=== PATIENT | female | born 1980 | race Caucasian/White ===

== ENCOUNTER 2019-09-01 23:01 | Inpatient (IN) | payer BC, OTHER ==
[2019-09-02] MEDS ORDERED: Sodium Chloride 0.9% 10 ML Syringe FLUSH PRN (00:16)
[2019-09-02] MEDS ORDERED: Sodium Chloride 0.9% 2.5 ML Syringe FLUSH PRN (00:16)
[2019-09-02] MEDS ORDERED: Sodium Chloride 0.9% 1,000 ML IV ONE (01:00)
[2019-09-02 01:06] LABS: BLOOD UREA NITROGEN,BUN 9 mg/dL (7.0-18.0); CARBON DIOXIDE,CO2 23.8 mmol/L (21.0-32.0); CHLORIDE,CL 99 mmol/L (98-107); GLUCOSE RANDOM 106 mg/dL (74-106); LIPASE 33 U/L (73-393); POTASSIUM,K 3.7 mmol/L (3.5-5.1); SODIUM,NA 135 mmol/L (136-145)
[2019-09-02] MEDS ORDERED: cefTRIAXone 1 GM in Premix Bag 1 BAG IV ONE (01:33)
[2019-09-02] MEDS ORDERED: Iopamidol 755 Mg/ML 100 ML Bottle IVPUSH STA (02:02)
[2019-09-02] MEDS ORDERED: Acetaminophen/oxyCODONE 325-5 MG Tab PO ONE (02:18)
--- NOTE | 2019-09-02 02:36 | CT ---
Indication: Left flank pain, suspected pyelonephritis versus renal stone Technique: Contrast enhanced axial CT imaging through the abdomen and pelvis. 100 mL Isovue 370 contrast agent was administered intravenously. Sagittal and coronal reconstructions are provided. Comparison: None Findings: There is a 2 mm stone in the distal left ureter, residing approximately 2 cm from the ureterovesical junction. There is mild left hydronephrosis and perinephric edema. There is also slightly delayed left renal enhancement. No additional renal stones are seen. The right kidney is unremarkable. There is no significant abnormality of the liver, spleen, pancreas, and adrenal glands. Cholecystectomy clips are noted. The IVC, hepatic veins, and portal veins are patent. There is normal caliber of the abdominal aorta. There is no abdominal lymphadenopathy. The stomach and duodenum are unremarkable. There are no abnormally dilated small bowel loops. The appendix is noninflamed. There is no colonic wall thickening. No inflammatory changes are demonstrated in the mesentery. There is no free intraperitoneal fluid or air. Note is made of a 3 cm left adnexal cystic lesion. The urinary bladder, uterus, and right ovary are unremarkable. The osseous structures are unremarkable. The included lung bases are clear. Impression: A 2 mm stone in the distal left ureter. Mild left hydronephrosis, perinephric edema, and slightly delayed left renal enhancement are consistent with urinary obstruction. No additional renal or ureteral stones. Please note that all CT scans at this facility use dose modulation, iterative reconstruction, and/or weight-based dosing when appropriate to reduce radiation dose to as low as reasonably achievable. Dictated by Shimon Gómez MD @ Sep 02 2019 2:26AM Signed by Dr. Shimon Gómez @ Sep 02 2019 2:35AM
--- NOTE | 2019-09-02 02:49 | EDM.PDOC ---
ED HPI GENERAL MEDICAL PROBLEM - General Chief Complaint: Abdominal Pain Stated Complaint: LOWER BACK/ABFOMEN PAIN Time Seen by Provider: 09/01/19 23:08 Source of Information: Reports: Patient History Limitations: Reports: No Limitations - History of Present Illness INITIAL COMMENTS - FREE TEXT/NARRATIVE: 39-year-old female with no past medical history presenting with left flank pain and left upper quadrant abdominal pain. She reports a 2-day history of left flank pain radiating into the left upper quadrant. This is been associated with urinary frequency and difficulty voiding. She reports chills, nausea, but no emesis. Began developing right-sided flank pain as well several hours prior to arrival. She is concerned that she may have a kidney infection, which prompted her to come to the ER. She denies any history of diabetes or immunosuppression. No hematuria, fever, vomiting, vaginal bleeding or discharge, history of trauma to the flank or abdomen, diarrhea, or GI bleeding. No prior history of kidney stones. flanks bilaterally Pain Score (Numeric/FACES): 6 - Related Data Allergies Allergy/AdvReac Type Severity Reaction Status Date / Time No Known Allergies Allergy Verified 09/01/19 23:36 Home Meds: Home Meds Ibuprofen 800 mg PO ASDIRECTED PRN 09/01/19 [History] Past Medical History - Infectious Disease History Infectious Disease History: Reports: Chicken Pox - Past Surgical History GI Surgical History: Reports: Cholecystectomy Female Surgical History: Reports: Tubal Ligation Social & Family History - Family History Family Medical History: Noncontributory - Tobacco Use Smoking Status *Q: Current Every Day Smoker Years of Tobacco use: 23 Packs/Tins Daily: 1 - Caffeine Use Caffeine Use: Reports: None - Recreational Drug Use Recreational Drug Use: No ED ROS GENERAL - Review of Systems Review Of Systems: See Below Constitutional: Reports: Chills, Malaise. Denies: Fever HEENT: Reports: No Symptoms Respiratory: Denies: Shortness of Breath Cardiovascular: Denies: Chest Pain Endocrine: Reports: No Symptoms GI/Abdominal: Reports: Abdominal Pain, Nausea. Denies: Black Stool, Bloody Stool, Diarrhea, Hematemesis, Hematochezia, Vomiting : Reports: Flank Pain, Frequency, Urgency. Denies: Dysuria, Hematuria, Pain Musculoskeletal: Denies: Back Pain Skin: Denies: Rash, Lesions Neurological: Denies: Headache Psychiatric: Reports: No Symptoms Hematologic/Lymphatic: Reports: No Symptoms ED EXAM, RENAL/ - Physical Exam Exam: See Below Text/Narrative:: Vital signs reviewed. Nursing notes reviewed. Constitutional: Awake, alert, non-distressed. Head: Normocephalic, atraumatic. Eyes: EOMI, conjunctiva normal, no discharge, no scleral icterus. Ears, Nose, Throat: External ears and nose normal, moist oral mucosa. Cardiovascular: 2+ radial pulse, capillary refill less than 2 seconds. RRR no MRG Pulmonary: normal work of breathing, no accessory muscle use. CTA BL Abdomen/GI: Soft, mild tenderness to left upper quadrant, nondistended, no guarding or rigidity, no masses. Musculoskeletal: No deformities. Integumentary: Appropriate color for ethnicity, warm, dry, no pallor or jaundice, no rash. Neurologic: Alert, answering questions appropriately, normal speech, no facial droop, moving all extremities well. Psychiatric: Appropriate mood and affect, normal thought process. Course - Vital Signs Text/Narrative:: Labs show a leukocytosis with neutrophilic predominance, otherwise fairly unremarkable. Urinalysis appears infected so urine culture was added on. Blood cultures were drawn x2. Patient was then given IV ceftriaxone and some Percocet for pain along with 1 L of normal saline. Lactate is normal. Does not meet criteria for severe sepsis or septic shock. We obtained a CT scan of the abdomen and pelvis which demonstrated f a 2 mm left ureteral stone. Given pyelonephritis with concomitant kidney stone, I did consult our on-call urologist Dr. Bustillo who plans for likely ureteral stent placement in the morning and wants the patient to be n.p.o. for now. Will plan to admit to the hospitalist service, I talked to Dr. All Morejon who agrees to admit. Last Recorded V/S: Last Vital Signs Temp 36.2 C 09/02/19 02:34 Pulse 90 09/02/19 02:34 Resp 18 09/02/19 02:34 BP 132/59 L 09/02/19 02:34 Pulse Ox 98 09/02/19 02:34 - Orders/Labs/Meds Orders: Active Orders 24 hr Category Date Time Status Overnight Pulse Oximetry [RC] Click to Edit Care 09/02/19 00:16 Active NPO [Nothing Per Oral Diet] [DIET] Diet 09/01/19 Breakfast Active CULTURE BLOOD [BC] Stat Lab 09/02/19 00:30 Received CULTURE BLOOD [BC] Stat Lab 09/02/19 00:58 Received CULTURE URINE [RM] Stat Lab 09/02/19 00:00 Received Sodium Chloride 0.9% [Saline Flush] Med 09/02/19 00:16 Active 10 ml FLUSH ASDIRECTED PRN Sodium Chloride 0.9% [Saline Flush] Med 09/02/19 00:16 Active 2.5 ml FLUSH ASDIRECTED PRN Blood Culture x2 Reflex Set [OM.PC] Stat Oth 09/02/19 00:16 Ordered Pulse Oximetry Continuous Monitoring [OM.PC] Routine Oth 09/02/19 00:16 Ordered Saline Lock Insert [OM.PC] Stat Ot 09/02/19 00:16 Ordered Medication Orders Sodium Chloride (Saline Flush) 10 ml FLUSH ASDIRECTED PRN PRN Reason: Keep Vein Open Sodium Chloride (Saline Flush) 2.5 ml FLUSH ASDIRECTED PRN PRN Reason: Keep Vein Open Labs: Laboratory Tests 09/01/19 09/01/19 09/02/19 Range/Units 23:45 23:45 00:30 WBC 19.68 H (4.0-11.0) K/uL RBC 4.85 (4.30-5.90) M/uL Hgb 14.6 (12.0-16.0) g/dL Hct 42.9 (36.0-46.0) % MCV 88.5 (80.0-98.0) fL MCH 30.1 (27.0-32.0) pg MCHC 34.0 (31.0-37.0) g/dL RDW Std Deviation 40.9 (28.0-62.0) fl RDW Coeff of Javy 13 (11.0-15.0) % Plt Count 274 (150-400) K/uL MPV 9.00 (7.40-12.00) fL Neut % (Auto) 88.1 H (48.0-80.0) % Lymph % (Auto) 4.6 L (16.0-40.0) % Mcintosh % (Auto) 7.0 (0.0-15.0) % Eos % (Auto) 0.1 (0.0-7.0) % Baso % (Auto) 0.2 (0.0-1.5) % Neut # (Auto) 17.4 H (1.4-5.7) K/uL Lymph # (Auto) 0.9 (0.6-2.4) K/uL Mc[place]osh # (Auto) 1.4 H (0.0-0.8) K/uL Eos # (Auto) 0.0 (0.0-0.7) K/uL Baso # (Auto) 0.0 (0.0-0.1) K/uL INR Lactate (0.20-2.00) mmol/L Sodium (136-145) mmol/L Potassium (3.5-5.1) mmol/L Chloride (98-107) mmol/L Carbon Dioxide (21.0-32.0) mmol/L BUN (7.0-18.0) mg/dL Creatinine (0.6-1.0) mg/dL Est Cr Clr Drug Dosing mL/min Estimated GFR (MDRD) ml/min Glucose (74-106) mg/dL Calcium (8.5-10.1) mg/dL Total Bilirubin (0.2-1.0) mg/dL AST (15-37) IU/L ALT (14-63) IU/L Alkaline Phosphatase (46-116) U/L Troponin I (0.000-0.056) ng/mL Total Protein (6.4-8.2) g/dL Albumin (3.4-5.0) g/dL Globulin (2.6-4.0) g/dL Albumin/Globulin Ratio (0.9-1.6) Lipase (73-393) U/L Urine Color YELLOW Urine Appearance CLOUDY Urine pH 6.0 (5.0-8.0) Ur Specific Bear <= 1.005 (1.001-1.035) Urine Protein NEGATIVE (NEGATIVE) mg/dL Urine Glucose (UA) NEGATIVE (NEGATIVE) mg/dL Urine Ketones NEGATIVE (NEGATIVE) mg/dL Urine Occult Blood MODERATE H (NEGATIVE) Urine Nitrite NEGATIVE (NEGATIVE) Urine Bilirubin NEGATIVE (NEGATIVE) Urine Urobilinogen 0.2 (<2.0) EU/dL Ur Leukocyte Esterase LARGE H (NEGATIVE) Urine RBC 2-5 (0-2/HPF) Urine WBC 30-40 (0-5/HPF) Ur Epithelial Cells FEW (NONE-FEW) Urine Bacteria 1+ H (NEGATIVE) Urine HCG, Qual NEGATIVE (NEGATIVE) 09/02/19 09/02/19 09/02/19 Range/Units 00:30 00:30 00:30 WBC (4.0-11.0) K/uL RBC (4.30-5.90) M/uL Hgb (12.0-16.0) g/dL Hct (36.0-46.0) % MCV (80.0-98.0) fL MCH (27.0-32.0) pg MCHC (31.0-37.0) g/dL RDW Std Deviation (28.0-62.0) fl RDW Coeff of Javy (11.0-15.0) % Plt Count (150-400) K/uL MPV (7.40-12.00) fL Neut % (Auto) (48.0-80.0) % Lymph % (Auto) (16.0-40.0) % Mcintosh % (Auto) (0.0-15.0) % Eos % (Auto) (0.0-7.0) % Baso % (Auto) (0.0-1.5) % Neut # (Auto) (1.4-5.7) K/uL Lymph # (Auto) (0.6-2.4) K/uL Mcintosh # (Auto) (0.0-0.8) K/uL Eos # (Auto) (0.0-0.7) K/uL Baso # (Auto) (0.0-0.1) K/uL INR 1.02 Lactate 1.0 (0.20-2.00) mmol/L Sodium 135 L (136-145) mmol/L Potassium 3.7 (3.5-5.1) mmol/L Chloride 99 (98-107) mmol/L Carbon Dioxide 23.8 (21.0-32.0) mmol/L BUN 9 (7.0-18.0) mg/dL Creatinine 1.2 H (0.6-1.0) mg/dL Est Cr Clr Drug Dosing 50.27 mL/min Estimated GFR (MDRD) 50.3 ml/min Glucose 106 (74-106) mg/dL Calcium 8.4 L (8.5-10.1) mg/dL Total Bilirubin 0.8 (0.2-1.0) mg/dL AST 23 (15-37) IU/L ALT 27 (14-63) IU/L Alkaline Phosphatase 95 (46-116) U/L Troponin I < 0.050 (0.000-0.056) ng/mL Total Protein 7.0 (6.4-8.2) g/dL Albumin 3.6 (3.4-5.0) g/dL Globulin 3.4 (2.6-4.0) g/dL Albumin/Globulin Ratio 1.1 (0.9-1.6) Lipase 33 L (73-393) U/L Urine Color Urine Appearance Urine pH (5.0-8.0) Ur Specific Bear (1.001-1.035) Urine Protein (NEGATIVE) mg/dL Urine Glucose (UA) (NEGATIVE) mg/dL Urine Ketones (NEGATIVE) mg/dL Urine Occult Blood (NEGATIVE) Urine Nitrite (NEGATIVE) Urine Bilirubin (NEGATIVE) Urine Urobilinogen (<2.0) EU/dL Ur Leukocyte Esterase (NEGATIVE) Urine RBC (0-2/HPF) Urine WBC (0-5/HPF) Ur Epithelial Cells (NONE-FEW) Urine Bacteria (NEGATIVE) Urine HCG, Qual (NEGATIVE) Meds: Medications Generic Name Dose Route Start Last Admin Trade Name Cheri PRN Reason Stop Dose Admin Sodium Chloride 10 ml 09/02/19 00:16 Saline Flush FLUSH ASDIRECTED PRN Keep Vein Open Sodium Chloride 2.5 ml 09/02/19 00:16 Saline Flush FLUSH ASDIRECTED PRN Keep Vein Open Discontinued Medications Generic Name Dose Route Start Last Admin Trade Name Cheri PRN Reason Stop Dose Admin Sodium Chloride 1,000 mls @ 1,000 mls/hr 09/02/19 01:00 09/02/19 01:07 Normal Saline IV 09/02/19 01:59 1,000 mls/hr .Bolus ONE Administration Ceftriaxone Sodium/Dextrose 1 50 mls @ 100 mls/hr 09/02/19 01:33 09/02/19 02:11 gm/ Premix IV 09/02/19 02:02 100 mls/hr ONETIME ONE Administration Iopamidol 100 ml 09/02/19 02:02 09/02/19 02:03 Isovue-370 (76%) IVPUSH 09/02/19 02:03 100 ml ONETIME STA Administration Oxycodone/Acetaminophen 2 tab 09/02/19 02:18 09/02/19 02:39 Percocet 325-5 Mg PO 09/02/19 02:19 2 tab ONETIME ONE Administration Departure - Departure Time of Disposition: 02:53 Disposition: Admitted As Inpatient 67 Condition: Good Clinical Impression: Pyelonephritis - Discharge Information Sepsis Event Note (ED) - Evaluation Sepsis Screening Result: No Definite Risk - Focused Exam Vital Signs: Vital Signs Temp Pulse Resp BP Pulse Ox 09/02/19 02:34 36.2 C 90 18 132/59 L 98 09/02/19 01:15 95 18 114/58 L 98 09/01/19 23:36 36.3 C 97 18 160/62 H 95 - My Orders Last 24 Hours: My Active Orders 09/01/19 Breakfast NPO [Nothing Per Oral Diet] [DIET] 09/02/19 00:00 CULTURE URINE [RM] Stat 09/02/19 00:16 Overnight Pulse Oximetry [RC] Click to Edit Sodium Chloride 0.9% [Saline Flush] 10 ml FLUSH ASDIRECTED PRN Sodium Chloride 0.9% [Saline Flush] 2.5 ml FLUSH ASDIRECTED PRN Blood Culture x2 Reflex Set [OM.PC] Stat Pulse Oximetry Continuous Monitoring [OM.PC] Routine Saline Lock Insert [OM.PC] Stat 09/02/19 00:30 CULTURE BLOOD [BC] Stat 09/02/19 00:58 CULTURE BLOOD [BC] Stat - Assessment/Plan Last 24 Hours: My Active Orders 09/01/19 Breakfast NPO [Nothing Per Oral Diet] [DIET] 09/02/19 00:00 CULTURE URINE [RM] Stat 09/02/19 00:16 Overnight Pulse Oximetry [RC] Click to Edit Sodium Chloride 0.9% [Saline Flush] 10 ml FLUSH ASDIRECTED PRN Sodium Chloride 0.9% [Saline Flush] 2.5 ml FLUSH ASDIRECTED PRN Blood Culture x2 Reflex Set [OM.PC] Stat Pulse Oximetry Continuous Monitoring [OM.PC] Routine Saline Lock Insert [OM.PC] Stat 09/02/19 00:30 CULTURE BLOOD [BC] Stat 09/02/19 00:58 CULTURE BLOOD [BC] Stat
[2019-09-02] MEDS ORDERED: cefTRIAXone 1 GM in Premix Bag 1 BAG IV SCH (04:00)
[2019-09-02] MEDS ORDERED: Morphine 4 MG/ML VIAL IVPUSH PRN (04:19)
[2019-09-02] MEDS ORDERED: Sodium Chloride 0.9% 1,000 ML IV SCH (04:30)
--- NOTE | 2019-09-02 07:24 | PCM.HP.2 ---
H&P History of Present Illness - General Date of Service: 09/02/19 Admit Problem/Dx: Admission Diagnosis/Problem Admission Diagnosis/Problem Pyelonephritis - History of Present Illness Initial Comments - Free Text/Narative: 39 yo female who presents with two day history of left flank pain that radiated to the upper abdomen. She reported difficulty urinating. She reports nausea and chills. CT scan in the ED showed 2mm obstructing stone of the left kidney. flanks bilaterally Pain Score (Numeric/FACES): 6 - Related Data Allergies/Adverse Reactions: Allergies Allergy/AdvReac Type Severity Reaction Status Date / Time No Known Allergies Allergy Verified 09/01/19 23:36 Home Medications: Home Meds Ibuprofen 800 mg PO ASDIRECTED PRN 09/01/19 [History] Past Medical History - Infectious Disease History Infectious Disease History: Reports: Chicken Pox - Past Surgical History GI Surgical History: Reports: Cholecystectomy Female Surgical History: Reports: Tubal Ligation Social & Family History - Family History Family Medical History: Noncontributory - Tobacco Use Smoking Status *Q: Current Every Day Smoker Years of Tobacco use: 23 Packs/Tins Daily: 1 Second Hand Smoke Exposure: No - Caffeine Use Caffeine Use: Reports: Soda - Recreational Drug Use Recreational Drug Use: Yes Recreational Drug Type: Reports: Marijuana/Hashish Recreational Drug Use Frequency: Daily H&P Review of Systems - Review of Systems: Review Of Systems: Comprehensive ROS is negative, except as noted in HPI. Exam - Exam Exam: See Below - Vital Signs Vital Signs: Last Vital Signs Temp 36.9 C 09/02/19 04:00 Pulse 90 09/02/19 04:00 Resp 16 09/02/19 04:00 BP 136/55 L 09/02/19 04:00 Pulse Ox 96 09/02/19 04:00 Weight: 97.386 kg - Exam General: Alert, Oriented HEENT: Mucosa Moist & [place] Neck: Supple Lungs: Clear to Auscultation, Normal Respiratory Effort Cardiovascular: Regular Rate, Regular Rhythm GI/Abdominal Exam: Normal Bowel Sounds, Soft, Non-Tender Back Exam: CVA Tenderness (L) Extremities: Non-Tender, No Pedal Edema Skin: Warm, Dry, Intact Neurological: No: Focal Deficit - Patient Data Lab Results Last 24 hrs: Laboratory Results - last 24 hr 09/01/19 09/01/19 09/02/19 Range/Units 23:45 23:45 00:30 WBC 19.68 H (4.0-11.0) K/uL RBC 4.85 (4.30-5.90) M/uL Hgb 14.6 (12.0-16.0) g/dL Hct 42.9 (36.0-46.0) % MCV 88.5 (80.0-98.0) fL MCH 30.1 (27.0-32.0) pg MCHC 34.0 (31.0-37.0) g/dL RDW Std Deviation 40.9 (28.0-62.0) fl RDW Coeff of Javy 13 (11.0-15.0) % Plt Count 274 (150-400) K/uL MPV 9.00 (7.40-12.00) fL Neut % (Auto) 88.1 H (48.0-80.0) % Lymph % (Auto) 4.6 L (16.0-40.0) % [place] % (Auto) 7.0 (0.0-15.0) % Eos % (Auto) 0.1 (0.0-7.0) % Baso % (Auto) 0.2 (0.0-1.5) % Neut # (Auto) 17.4 H (1.4-5.7) K/uL Lymph # (Auto) 0.9 (0.6-2.4) K/uL [place] # (Auto) 1.4 H (0.0-0.8) K/uL Eos # (Auto) 0.0 (0.0-0.7) K/uL Baso # (Auto) 0.0 (0.0-0.1) K/uL INR Lactate (0.20-2.00) mmol/L Sodium (136-145) mmol/L Potassium (3.5-5.1) mmol/L Chloride (98-107) mmol/L Carbon Dioxide (21.0-32.0) mmol/L BUN (7.0-18.0) mg/dL Creatinine (0.6-1.0) mg/dL Est Cr Clr Drug Dosing mL/min Estimated GFR (MDRD) ml/min Glucose (74-106) mg/dL Calcium (8.5-10.1) mg/dL Total Bilirubin (0.2-1.0) mg/dL AST (15-37) IU/L ALT (14-63) IU/L Alkaline Phosphatase (46-116) U/L Troponin I (0.000-0.056) ng/mL Total Protein (6.4-8.2) g/dL Albumin (3.4-5.0) g/dL Globulin (2.6-4.0) g/dL Albumin/Globulin Ratio (0.9-1.6) Lipase (73-393) U/L Urine Color YELLOW Urine Appearance CLOUDY Urine pH 6.0 (5.0-8.0) Ur Specific Sargent <= 1.005 (1.001-1.035) Urine Protein NEGATIVE (NEGATIVE) mg/dL Urine Glucose (UA) NEGATIVE (NEGATIVE) mg/dL Urine Ketones NEGATIVE (NEGATIVE) mg/dL Urine Occult Blood MODERATE H (NEGATIVE) Urine Nitrite NEGATIVE (NEGATIVE) Urine Bilirubin NEGATIVE (NEGATIVE) Urine Urobilinogen 0.2 (<2.0) EU/dL Ur Leukocyte Esterase LARGE H (NEGATIVE) Urine RBC 2-5 (0-2/HPF) Urine WBC 30-40 (0-5/HPF) Ur Epithelial Cells FEW (NONE-FEW) Urine Bacteria 1+ H (NEGATIVE) Urine HCG, Qual NEGATIVE (NEGATIVE) COVID-19 (AYAAN) (NEGATIVE) 09/02/19 09/02/19 09/02/19 Range/Units 00:30 00:30 00:30 WBC (4.0-11.0) K/uL RBC (4.30-5.90) M/uL Hgb (12.0-16.0) g/dL Hct (36.0-46.0) % MCV (80.0-98.0) fL MCH (27.0-32.0) pg MCHC (31.0-37.0) g/dL RDW Std Deviation (28.0-62.0) fl RDW Coeff of Javy (11.0-15.0) % Plt Count (150-400) K/uL MPV (7.40-12.00) fL Neut % (Auto) (48.0-80.0) % Lymph % (Auto) (16.0-40.0) % [place] % (Auto) (0.0-15.0) % Eos % (Auto) (0.0-7.0) % Baso % (Auto) (0.0-1.5) % Neut # (Auto) (1.4-5.7) K/uL Lymph # (Auto) (0.6-2.4) K/uL [place] # (Auto) (0.0-0.8) K/uL Eos # (Auto) (0.0-0.7) K/uL Baso # (Auto) (0.0-0.1) K/uL INR 1.02 Lactate 1.0 (0.20-2.00) mmol/L Sodium 135 L (136-145) mmol/L Potassium 3.7 (3.5-5.1) mmol/L Chloride 99 (98-107) mmol/L Carbon Dioxide 23.8 (21.0-32.0) mmol/L BUN 9 (7.0-18.0) mg/dL Creatinine 1.2 H (0.6-1.0) mg/dL Est Cr Clr Drug Dosing 50.27 mL/min Estimated GFR (MDRD) 50.3 ml/min Glucose 106 (74-106) mg/dL Calcium 8.4 L (8.5-10.1) mg/dL Total Bilirubin 0.8 (0.2-1.0) mg/dL AST 23 (15-37) IU/L ALT 27 (14-63) IU/L Alkaline Phosphatase 95 (46-116) U/L Troponin I < 0.050 (0.000-0.056) ng/mL Total Protein 7.0 (6.4-8.2) g/dL Albumin 3.6 (3.4-5.0) g/dL Globulin 3.4 (2.6-4.0) g/dL Albumin/Globulin Ratio 1.1 (0.9-1.6) Lipase 33 L (73-393) U/L Urine Color Urine Appearance Urine pH (5.0-8.0) Ur Specific Sargent (1.001-1.035) Urine Protein (NEGATIVE) mg/dL Urine Glucose (UA) (NEGATIVE) mg/dL Urine Ketones (NEGATIVE) mg/dL Urine Occult Blood (NEGATIVE) Urine Nitrite (NEGATIVE) Urine Bilirubin (NEGATIVE) Urine Urobilinogen (<2.0) EU/dL Ur Leukocyte Esterase (NEGATIVE) Urine RBC (0-2/HPF) Urine WBC (0-5/HPF) Ur Epithelial Cells (NONE-FEW) Urine Bacteria (NEGATIVE) Urine HCG, Qual (NEGATIVE) COVID-19 (AYAAN) (NEGATIVE) 09/02/19 Range/Units 03:00 WBC (4.0-11.0) K/uL RBC (4.30-5.90) M/uL Hgb (12.0-16.0) g/dL Hct (36.0-46.0) % MCV (80.0-98.0) fL MCH (27.0-32.0) pg MCHC (31.0-37.0) g/dL RDW Std Deviation (28.0-62.0) fl RDW Coeff of Javy (11.0-15.0) % Plt Count (150-400) K/uL MPV (7.40-12.00) fL Neut % (Auto) (48.0-80.0) % Lymph % (Auto) (16.0-40.0) % [place] % (Auto) (0.0-15.0) % Eos % (Auto) (0.0-7.0) % Baso % (Auto) (0.0-1.5) % Neut # (Auto) (1.4-5.7) K/uL Lymph # (Auto) (0.6-2.4) K/uL [place] # (Auto) (0.0-0.8) K/uL Eos # (Auto) (0.0-0.7) K/uL Baso # (Auto) (0.0-0.1) K/uL INR Lactate (0.20-2.00) mmol/L Sodium (136-145) mmol/L Potassium (3.5-5.1) mmol/L Chloride (98-107) mmol/L Carbon Dioxide (21.0-32.0) mmol/L BUN (7.0-18.0) mg/dL Creatinine (0.6-1.0) mg/dL Est Cr Clr Drug Dosing mL/min Estimated GFR (MDRD) ml/min Glucose (74-106) mg/dL Calcium (8.5-10.1) mg/dL Total Bilirubin (0.2-1.0) mg/dL AST (15-37) IU/L ALT (14-63) IU/L Alkaline Phosphatase (46-116) U/L Troponin I (0.000-0.056) ng/mL Total Protein (6.4-8.2) g/dL Albumin (3.4-5.0) g/dL Globulin (2.6-4.0) g/dL Albumin/Globulin Ratio (0.9-1.6) Lipase (73-393) U/L Urine Color Urine Appearance Urine pH (5.0-8.0) Ur Specific S[place] (1.001-1.035) Urine Protein (NEGATIVE) mg/dL Urine Glucose (UA) (NEGATIVE) mg/dL Urine Ketones (NEGATIVE) mg/dL Urine Occult Blood (NEGATIVE) Urine Nitrite (NEGATIVE) Urine Bilirubin (NEGATIVE) Urine Urobilinogen (<2.0) EU/dL Ur Leukocyte Esterase (NEGATIVE) Urine RBC (0-2/HPF) Urine WBC (0-5/HPF) Ur Epithelial Cells (NONE-FEW) Urine Bacteria (NEGATIVE) Urine HCG, Qual (NEGATIVE) COVID-19 (AYAAN) NEGATIVE (NEGATIVE) Result Diagrams: 09/02/19 00:30 09/02/19 00:30 Sepsis Event Note - Evaluation Sepsis Screening Result: No Definite Risk - Focused Exam Vital Signs: Vital Signs Temp Pulse Resp BP Pulse Ox 09/02/19 04:00 36.9 C 90 16 136/55 L 96 09/02/19 02:34 36.2 C 90 18 132/59 L 98 09/02/19 01:15 95 18 114/58 L 98 09/01/19 23:36 36.3 C 97 18 160/62 H 95 Date Exam was Performed: 09/02/19 Time Exam was Performed: 09:09 Problem List Initiated/Reviewed/Updated: Yes Orders Last 24hrs: Active Orders 24 hr Category Date Time Status Admission Status [Patient Status] [ADT] Stat ADT 09/02/19 02:51 Active Overnight Pulse Oximetry [RC] Click to Edit Care 09/02/19 00:16 Active Up ad Latonya [RC] ASDIRECTED Care 09/02/19 04:19 Active Vital Signs [RC] Q4H Care 09/02/19 04:19 Active NPO [Nothing Per Oral Diet] [DIET] Diet 09/01/19 Breakfast Active CULTURE BLOOD [BC] Stat Lab 09/02/19 00:30 Received CULTURE BLOOD [BC] Stat Lab 09/02/19 00:58 Received CULTURE URINE [RM] Stat Lab 09/02/19 00:00 Received Morphine Sulfate [Morphine] Med 09/02/19 04:19 Active 2 mg IVPUSH Q3H PRN Ondansetron [Zofran] Med 09/02/19 04:19 Active 4 mg IVPUSH Q4H PRN Sodium Chloride 0.9% [Normal Saline] 1,000 ml Med 09/02/19 04:30 Active IV ASDIRECTED Sodium Chloride 0.9% [Saline Flush] Med 09/02/19 00:16 Active 10 ml FLUSH ASDIRECTED PRN Sodium Chloride 0.9% [Saline Flush] Med 09/02/19 00:16 Active 2.5 ml FLUSH ASDIRECTED PRN cefTRIAXone [Rocephin in Dextrose,Iso-Osm 1 GM/50 ML] 1 Med 09/02/19 04:00 Active gm Premix Bag 1 bag IV Q24H oxyCODONE Med 09/02/19 04:19 Active 5 mg PO Q4H PRN Blood Culture x2 Reflex Set [OM.PC] Stat Oth 09/02/19 00:16 Ordered Pulse Oximetry Continuous Monitoring [OM.PC] Routine Oth 09/02/19 00:16 Ordered Saline Lock Insert [OM.PC] Stat Oth 09/02/19 00:16 Ordered Medication Orders Sodium Chloride (Normal Saline) 1,000 mls @ 125 mls/hr IV ASDIRECTED [facility] Last Admin: 09/02/19 04:52 Dose: 125 mls/hr Documented by: RYAN Ceftriaxone Sodium/Dextrose 1 (gm/ Premix) 50 mls @ 100 mls/hr IV Q24H [facility] Last Admin: 09/02/19 04:54 Dose: 100 mls/hr Documented by: RYAN Morphine Sulfate (Morphine) 2 mg IVPUSH Q3H PRN PRN Reason: Pain Ondansetron HCl (Zofran) 4 mg IVPUSH Q4H PRN PRN Reason: Nausea/Vomiting Oxycodone HCl (Oxycodone) 5 mg PO Q4H PRN PRN Reason: Pain Sodium Chloride (Saline Flush) 10 ml FLUSH ASDIRECTED PRN PRN Reason: Keep Vein Open Sodium Chloride (Saline Flush) 2.5 ml FLUSH ASDIRECTED PRN PRN Reason: Keep Vein Open Assessment/Plan Comment:: 39 yo female admitted for left pyelonephritis with obstructing renal stone. Dr. Bustillo has been consulted by ED physician. We will continue Rocephin. Urine cultures pending.
[2019-09-02] MEDS ORDERED: Morphine 2 MG/ML SYRINGE IVPUSH PRN (08:00)
[2019-09-02] MEDS: oxyCODONE 5 MG Tab PO PRN ×2 (09:45→20:54)
[2019-09-02] MEDS: Ondansetron 4 MG/2 ML SDV IVPUSH PRN ×2 (09:47→14:33)
--- NOTE | 2019-09-02 10:36 | PCM.PREANE ---
Preanesthetic Assessment - Anesthesia/Transfusion/Family Hx Anesthesia History: Prior Anesthesia Without Reaction Family History of Anesthesia Reaction: No Transfusion History: No Prior Transfusion(s) - Review of Systems General: No Symptoms Pulmonary: No Symptoms Cardiovascular: No Symptoms Gastrointestinal: No Symptoms Neurological: No Symptoms Other: Reports: None - Physical Assessment NPO Status Date: 09/01/19 Vital Signs: Last Vital Signs Temp 97.4 F 09/02/19 08:00 Pulse 96 09/02/19 08:00 Resp 16 09/02/19 08:00 BP 133/74 09/02/19 08:00 Pulse Ox 96 09/02/19 08:00 Height: 5 ft 2 in Weight: 97.386 kg ASA Class: 2 Mental Status: Alert & Oriented x3 Airway Class: Mallampati = 2 Dentition: Reports: Normal Dentition ROM/Head Extension: Full Lungs: Clear to Auscultation, Normal Respiratory Effort Cardiovascular: Regular Rate, Regular Rhythm - Lab Values: Laboratory Last Values WBC 19.68 K/uL (4.0-11.0) H 09/02/19 00:30 RBC 4.85 M/uL (4.30-5.90) 09/02/19 00:30 Hgb 14.6 g/dL (12.0-16.0) 09/02/19 00:30 Hct 42.9 % (36.0-46.0) 09/02/19 00:30 MCV 88.5 fL (80.0-98.0) 09/02/19 00:30 MCH 30.1 pg (27.0-32.0) 09/02/19 00:30 MCHC 34.0 g/dL (31.0-37.0) 09/02/19 00:30 RDW Std Deviation 40.9 fl (28.0-62.0) 09/02/19 00:30 RDW Coeff of Javy 13 % (11.0-15.0) 09/02/19 00:30 Plt Count 274 K/uL (150-400) 09/02/19 00:30 MPV 9.00 fL (7.40-12.00) 09/02/19 00:30 Neut % (Auto) 88.1 % (48.0-80.0) H 09/02/19 00:30 Lymph % (Auto) 4.6 % (16.0-40.0) L 09/02/19 00:30 [place] % (Auto) 7.0 % (0.0-15.0) 09/02/19 00:30 Eos % (Auto) 0.1 % (0.0-7.0) 09/02/19 00:30 Baso % (Auto) 0.2 % (0.0-1.5) 09/02/19 00:30 Neut # (Auto) 17.4 K/uL (1.4-5.7) H 09/02/19 00:30 Lymph # (Auto) 0.9 K/uL (0.6-2.4) 09/02/19 00:30 [place] # (Auto) 1.4 K/uL (0.0-0.8) H 09/02/19 00:30 Eos # (Auto) 0.0 K/uL (0.0-0.7) 09/02/19 00:30 Baso # (Auto) 0.0 K/uL (0.0-0.1) 09/02/19 00:30 INR 1.02 09/02/19 00:30 Lactate 1.0 mmol/L (0.20-2.00) 09/02/19 00:30 Sodium 135 mmol/L (136-145) L 09/02/19 00:30 Potassium 3.7 mmol/L (3.5-5.1) 09/02/19 00:30 Chloride 99 mmol/L (98-107) 09/02/19 00:30 Carbon Dioxide 23.8 mmol/L (21.0-32.0) 09/02/19 00:30 BUN 9 mg/dL (7.0-18.0) 09/02/19 00:30 Creatinine 1.2 mg/dL (0.6-1.0) H 09/02/19 00:30 Est Cr Clr Drug Dosing 50.27 mL/min 09/02/19 00:30 Estimated GFR (MDRD) 50.3 ml/min 09/02/19 00:30 Glucose 106 mg/dL (74-106) 09/02/19 00:30 Calcium 8.4 mg/dL (8.5-10.1) L 09/02/19 00:30 Total Bilirubin 0.8 mg/dL (0.2-1.0) 09/02/19 00:30 AST 23 IU/L (15-37) 09/02/19 00:30 ALT 27 IU/L (14-63) 09/02/19 00:30 Alkaline Phosphatase 95 U/L (46-116) 09/02/19 00:30 Troponin I < 0.050 ng/mL (0.000-0.056) 09/02/19 00:30 Total Protein 7.0 g/dL (6.4-8.2) 09/02/19 00:30 Albumin 3.6 g/dL (3.4-5.0) 09/02/19 00:30 Globulin 3.4 g/dL (2.6-4.0) 09/02/19 00:30 Albumin/Globulin Ratio 1.1 (0.9-1.6) 09/02/19 00:30 Lipase 33 U/L (73-393) L 09/02/19 00:30 Urine Color YELLOW 09/01/19 23:45 Urine Appearance CLOUDY 09/01/19 23:45 Urine pH 6.0 (5.0-8.0) 09/01/19 23:45 Ur Specific [place] <= 1.005 (1.001-1.035) 09/01/19 23:45 Urine Protein NEGATIVE mg/dL (NEGATIVE) 09/01/19 23:45 Urine Glucose (UA) NEGATIVE mg/dL (NEGATIVE) 09/01/19 23:45 Urine Ketones NEGATIVE mg/dL (NEGATIVE) 09/01/19 23:45 Urine Occult Blood MODERATE (NEGATIVE) H 09/01/19 23:45 Urine Nitrite NEGATIVE (NEGATIVE) 09/01/19 23:45 Urine Bilirubin NEGATIVE (NEGATIVE) 09/01/19 23:45 Urine Urobilinogen 0.2 EU/dL (<2.0) 09/01/19 23:45 Ur Leukocyte Esterase LARGE (NEGATIVE) H 09/01/19 23:45 Urine RBC 2-5 (0-2/HPF) 09/01/19 23:45 Urine WBC 30-40 (0-5/HPF) 09/01/19 23:45 Ur Epithelial Cells FEW (NONE-FEW) 09/01/19 23:45 Urine Bacteria 1+ (NEGATIVE) H 09/01/19 23:45 Urine HCG, Qual NEGATIVE (NEGATIVE) 09/01/19 23:45 COVID-19 (AYAAN) NEGATIVE (NEGATIVE) 09/02/19 03:00 - Allergies Allergies/Adverse Reactions: Allergies Allergy/AdvReac Type Severity Reaction Status Date / Time No Known Allergies Allergy Verified 09/01/19 23:36 - Blood Blood Available: No - Anesthesia Plan Pre-Op Medication Ordered: None - Acknowledgements Anesthesia Type Planned: General Anesthesia Pt an Appropriate Candidate for the Planned Anesthesia: Yes Alternatives and Risks of Anesthesia Discussed w Pt/Guardian: Yes Pt/Guardian Understands and Agrees with Anesthesia Plan: Yes Additional Comments: PMH: uti stone, smoker tobacco and cannabis PLAN: [place] PreAnesthesia Questionnaire - Infectious Disease History Infectious Disease History: Reports: Chicken Pox - Past Surgical History GI Surgical History: Reports: Cholecystectomy Female Surgical History: Reports: Tubal Ligation - SUBSTANCE USE Smoking Status *Q: Current Every Day Smoker Tobacco Use Within Last Twelve Months: Cigarettes Second Hand Smoke Exposure: No Recreational Drug Use History: Yes Recreational Drug Type: Reports: Marijuana/Hashish - HOME MEDS Home Medications: Home Meds Ibuprofen 800 mg PO ASDIRECTED PRN 09/01/19 [History] - CURRENT (IN HOUSE) MEDS Current Meds: Current Medications Sodium Chloride (Normal Saline) 1,000 mls @ 125 mls/hr IV ASDIRECTED [facility] Last Admin: 09/02/19 04:52 Dose: 125 mls/hr Documented by: Ceftriaxone Sodium/Dextrose 1 (gm/ Premix) 50 mls @ 100 mls/hr IV Q24H [facility] Last Admin: 09/02/19 04:54 Dose: 100 mls/hr Documented by: Morphine Sulfate (Morphine) 2 mg IVPUSH Q3H PRN PRN Reason: Pain Ondansetron HCl (Zofran) 4 mg IVPUSH Q4H PRN PRN Reason: Nausea/Vomiting Last Admin: 09/02/19 09:47 Dose: 4 mg Documented by: Oxycodone HCl (Oxycodone) 5 mg PO Q4H PRN PRN Reason: Pain Last Admin: 09/02/19 09:45 Dose: 5 mg Documented by: Sodium Chloride (Saline Flush) 10 ml FLUSH ASDIRECTED PRN PRN Reason: Keep Vein Open Sodium Chloride (Saline Flush) 2.5 ml FLUSH ASDIRECTED PRN PRN Reason: Keep Vein Open Discontinued Medications Sodium Chloride (Normal Saline) 1,000 mls @ 1,000 mls/hr IV .Bolus ONE Stop: 09/02/19 01:59 Last Admin: 09/02/19 01:07 Dose: 1,000 mls/hr Documented by: Ceftriaxone Sodium/Dextrose 1 (gm/ Premix) 50 mls @ 100 mls/hr IV ONETIME ONE Stop: 09/02/19 02:02 Last Admin: 09/02/19 02:11 Dose: 100 mls/hr Documented by: Iopamidol (Isovue-370 (76%)) 100 ml IVPUSH ONETIME STA Stop: 09/02/19 02:03 Last Admin: 09/02/19 02:03 Dose: 100 ml Documented by: Morphine Sulfate (Morphine) 2 mg IVPUSH Q3H PRN PRN Reason: Pain Oxycodone/Acetaminophen (Percocet 325-5 Mg) 2 tab PO ONETIME ONE Stop: 09/02/19 02:19 Last Admin: 09/02/19 02:39 Dose: 2 tab Documented by:
[2019-09-02] MEDS ORDERED: Ondansetron 4 MG/2 ML SDV ONE (11:44)
[2019-09-02] MEDS ORDERED: Propofol 200 MG/20 ML SDV ONE (11:44)
[2019-09-02] MEDS ORDERED: fentaNYL 100 MCG/2 ML SDV ONE (11:45)
[2019-09-02] MEDS ORDERED: Midazolam 1 MG/ML 2 ML SDV ONE (11:45)
[2019-09-02] MEDS ORDERED: Glycopyrrolate 0.2 MG/ML SDV ONE (11:46)
[2019-09-02] MEDS ORDERED: Morphine 10 MG/ML Syringe ONE (12:28)
[2019-09-02] MEDS ORDERED: Acetaminophen 1,000 MG in Premix Bag 1 BAG IV ONE (12:30)
--- NOTE | 2019-09-02 13:11 | PCM.POSTAN ---
POST ANESTHESIA ASSESSMENT - MENTAL STATUS Mental Status: Alert, Oriented - VITAL SIGNS Vital Signs: Last Vital Signs Temp 97.0 F 09/02/19 12:43 Pulse 97 09/02/19 13:09 Resp 12 09/02/19 13:09 BP 116/71 09/02/19 13:09 Pulse Ox 97 09/02/19 13:09 - RESPIRATORY Respiratory Status: Respiratory Rate WNL, Airway Patent, O2 Saturation Stable - CARDIOVASCULAR CV Status: Pulse Rate WNL, Blood Pressure Stable - GASTROINTESTINAL GI Status: No Symptoms - POST OP HYDRATION Hydration Status: Adequate & Stable
[2019-09-02] MEDS: Piperacillin/Tazobactam 3.375 GM in Sodium Chloride 0.9% 50 ML IV SCH ×2 (16:21→22:09)
--- NOTE | 2019-09-02 16:31 | OR ---
SURGEON: Laurie Bustillo M.D. DATE OF PROCEDURE: 09/02/2019 PREOPERATIVE DIAGNOSIS: Left lower ureteral stone with urinary tract infection and ureteral obstruction. POSTOPERATIVE DIAGNOSIS: Left lower ureteral stone with urinary tract infection and ureteral obstruction. OPERATION: Cystoscopy, double-J stent placement. DESCRIPTION OF PROCEDURE: The patient was given general anesthesia. She was placed in the dorsal lithotomy position, prepped and draped in sterile drapes. Cystourethroscopy was done that was normal. A guidewire was advanced in the left ureter alongside the stone all the way up into the renal pelvis over which a [id number] 26 centimeter double-J stent was placed. The position was confirmed on fluoroscopy. The bladder was emptied, and the patient was moved to recovery room in good condition. PLAN: She will come to the office in 1 week. I will take the double-J stent out. DARELL / RANDI /[id number]
[2019-09-03] MEDS: Piperacillin/Tazobactam 3.375 GM in Sodium Chloride 0.9% 50 ML IV SCH ×4 (03:53→21:17)
[2019-09-03] MEDS ORDERED: Acetaminophen 325 MG Tab PO PRN (04:10)
[2019-09-03 07:12] LABS: CARBON DIOXIDE,CO2 22.3 mmol/L (21.0-32.0); POTASSIUM,K 2.7 mmol/L (3.5-5.1)
[2019-09-03] MEDS: oxyCODONE 5 MG Tab PO PRN ×2 (08:22→21:20)
[2019-09-03] MEDS: Ondansetron 4 MG/2 ML SDV IVPUSH PRN (08:24)
--- NOTE | 2019-09-03 10:26 | CONS ---
DATE OF CONSULTATION: 09/02/2019 DATE OF : 1980 PRIMARY CARE PHYSICIAN: Nick Maher DO HISTORY OF PRESENT ILLNESS: Tammie is 39 years old. She presented to the emergency room with sudden onset of left flank pain. She had a CT scan that showed a 2 to 3 mm left lower obstructive ureteral stone. Her UA was strongly suggestive of UTI. White blood count was 19,000. She is afebrile. Her vital signs were stable. She was admitted to the hospital and observed overnight. I saw her this morning. PHYSICAL EXAMINATION: GENERAL: She is alert, she is oriented. At the present time, she is not in pain. HEART: Normal sinus rhythm. LUNGS: Clear. ABDOMEN: Mild to moderate tenderness over the left side of the abdomen. DIAGNOSES: Left lower ureteral stone with obstruction and urinary tract infection. PLAN: Cystoscopy, double-J stent placement. DARELL / RANDI /[id number]
[2019-09-03] MEDS ORDERED: Potassium Chloride 20 MEQ Tab.ER PO ONE (11:03)
--- NOTE | 2019-09-03 11:06 | PCM.PN ---
- General Info Date of Service: 09/03/19 - Review of Systems Systems Review Comment:: fever improved, feeling better, still has flank pressure - Patient Data Vitals - Most Recent: Last Vital Signs Temp 36.3 C 09/03/19 08:09 Pulse 81 09/03/19 08:09 Resp 20 09/03/19 08:09 BP 133/64 09/03/19 08:09 Pulse Ox 95 09/03/19 08:09 Weight - Most Recent: 97.386 kg I&O - Last 24 Hours: Intake & Output 09/02/19 09/03/19 09/03/19 22:59 06:59 14:59 Intake Total 3549 100 Output Total 950 Balance 2599 100 Lab Results Last 24 Hours: Laboratory Results - last 24 hr 09/02/19 09/02/19 09/02/19 Range/Units 00:30 00:30 00:30 WBC 19.68 H (4.0-11.0) K/uL RBC 4.85 (4.30-5.90) M/uL Hgb 14.6 (12.0-16.0) g/dL Hct 42.9 (36.0-46.0) % MCV 88.5 (80.0-98.0) fL MCH 30.1 (27.0-32.0) pg MCHC 34.0 (31.0-37.0) g/dL RDW Std Deviation 40.9 (28.0-62.0) fl RDW Coeff of Javy 13 (11.0-15.0) % Plt Count 274 (150-400) K/uL MPV 9.00 (7.40-12.00) fL Neut % (Auto) 88.1 H (48.0-80.0) % Lymph % (Auto) 4.6 L (16.0-40.0) % [place] % (Auto) 7.0 (0.0-15.0) % Eos % (Auto) 0.1 (0.0-7.0) % Baso % (Auto) 0.2 (0.0-1.5) % Neut # (Auto) 17.4 H (1.4-5.7) K/uL Lymph # (Auto) 0.9 (0.6-2.4) K/uL [place] # (Auto) 1.4 H (0.0-0.8) K/uL Eos # (Auto) 0.0 (0.0-0.7) K/uL Baso # (Auto) 0.0 (0.0-0.1) K/uL Nucleated RBC % /100WBC Nucleated RBCs # K/uL INR 1.02 Sodium 135 L (136-145) mmol/L Potassium 3.7 (3.5-5.1) mmol/L Chloride 99 (98-107) mmol/L Carbon Dioxide 23.8 (21.0-32.0) mmol/L BUN 9 (7.0-18.0) mg/dL Creatinine 1.2 H (0.6-1.0) mg/dL Est Cr Clr Drug Dosing 50.27 mL/min Estimated GFR (MDRD) 50.3 ml/min Glucose 106 (74-106) mg/dL Calcium 8.4 L (8.5-10.1) mg/dL Total Bilirubin 0.8 (0.2-1.0) mg/dL AST 23 (15-37) IU/L ALT 27 (14-63) IU/L Alkaline Phosphatase 95 (46-116) U/L Troponin I < 0.050 (0.000-0.056) ng/mL Total Protein 7.0 (6.4-8.2) g/dL Albumin 3.6 (3.4-5.0) g/dL Globulin 3.4 (2.6-4.0) g/dL Albumin/Globulin Ratio 1.1 (0.9-1.6) Lipase 33 L (73-393) U/L 09/03/19 09/03/19 Range/Units 06:02 06:02 WBC 12.37 H (4.0-11.0) K/uL RBC 4.06 L (4.30-5.90) M/uL Hgb 11.9 L (12.0-16.0) g/dL Hct 36.1 (36.0-46.0) % MCV 88.9 (80.0-98.0) fL MCH 29.3 (27.0-32.0) pg MCHC 33.0 (31.0-37.0) g/dL RDW Std Deviation 43.8 (28.0-62.0) fl RDW Coeff of Javy 13 (11.0-15.0) % Plt Count 248 (150-400) K/uL MPV 9.30 (7.40-12.00) fL Neut % (Auto) 85.3 H (48.0-80.0) % Lymph % (Auto) 6.9 L (16.0-40.0) % [place] % (Auto) 7.4 (0.0-15.0) % Eos % (Auto) 0.2 (0.0-7.0) % Baso % (Auto) 0.2 (0.0-1.5) % Neut # (Auto) 10.6 H (1.4-5.7) K/uL Lymph # (Auto) 0.9 (0.6-2.4) K/uL [place] # (Auto) 0.9 H (0.0-0.8) K/uL Eos # (Auto) 0.0 (0.0-0.7) K/uL Baso # (Auto) 0.0 (0.0-0.1) K/uL Nucleated RBC % 0.0 /100WBC Nucleated RBCs # 0 K/uL INR Sodium 134 L (136-145) mmol/L Potassium 2.7 L (3.5-5.1) mmol/L Chloride 99 (98-107) mmol/L Carbon Dioxide 22.3 (21.0-32.0) mmol/L BUN 9 (7.0-18.0) mg/dL Creatinine 1.2 H (0.6-1.0) mg/dL Est Cr Clr Drug Dosing 50.27 mL/min Estimated GFR (MDRD) 50.3 ml/min Glucose 113 H (74-106) mg/dL Calcium 7.9 L (8.5-10.1) mg/dL Total Bilirubin (0.2-1.0) mg/dL AST (15-37) IU/L ALT (14-63) IU/L Alkaline Phosphatase (46-116) U/L Troponin I (0.000-0.056) ng/mL Total Protein (6.4-8.2) g/dL Albumin (3.4-5.0) g/dL Globulin (2.6-4.0) g/dL Albumin/Globulin Ratio (0.9-1.6) Lipase (73-393) U/L [place] Results Last 24 Hours: Microbiology 09/02/19 00:58 Aerobic Blood Culture - Preliminary Blood - Venous - Lab Draw NO GROWTH AFTER 1 DAY Anaerobic Blood Culture - Preliminary 09/02/19 00:30 Aerobic Blood Culture - Preliminary Blood - Venous NO GROWTH AFTER 1 DAY Anaerobic Blood Culture - Preliminary NO GROWTH AFTER 1 DAY Med Orders - Current: Current Medications Acetaminophen (Tylenol) 325 mg PO Q4H PRN PRN Reason: Pain/Fever Last Admin: 09/03/19 04:33 Dose: 325 mg Documented by: Piperacillin Sod/Tazobactam (Sod 3.375 gm/ Sodium Chloride) 50 mls @ 100 mls/hr IV Q6H [facility] Last Admin: 09/03/19 10:54 Dose: 100 mls/hr Documented by: Potassium Chloride/Sodium Chloride (Normal Saline With 40 Meq Kcl) 1,000 mls @ 150 mls/hr IV ASDIRECTED [facility] Stop: 09/03/19 17:54 Morphine Sulfate (Morphine) 2 mg IVPUSH Q3H PRN PRN Reason: Pain Ondansetron HCl (Zofran) 4 mg IVPUSH Q4H PRN PRN Reason: Nausea/Vomiting Last Admin: 09/03/19 08:24 Dose: 4 mg Documented by: Oxycodone HCl (Oxycodone) 5 mg PO Q4H PRN PRN Reason: Pain Last Admin: 09/03/19 08:22 Dose: 5 mg Documented by: Potassium Chloride (Klor-Con M20) 40 meq PO ONETIME ONE Stop: 09/03/19 11:04 Sodium Chloride (Saline Flush) 10 ml FLUSH ASDIRECTED PRN PRN Reason: Keep Vein Open Sodium Chloride (Saline Flush) 2.5 ml FLUSH ASDIRECTED PRN PRN Reason: Keep Vein Open Discontinued Medications Fentanyl (Sublimaze) Confirm Administered Dose 200 mcg .ROUTE .STK-MED ONE Stop: 09/02/19 11:46 Glycopyrrolate (Robinul) Confirm Administered Dose 0.2 mg .ROUTE .STK-MED ONE Stop: 09/02/19 11:47 Sodium Chloride (Normal Saline) 1,000 mls @ 1,000 mls/hr IV .Bolus ONE Stop: 09/02/19 01:59 Last Admin: 09/02/19 01:07 Dose: 1,000 mls/hr Documented by: Ceftriaxone Sodium/Dextrose 1 (gm/ Premix) 50 mls @ 100 mls/hr IV ONETIME ONE Stop: 09/02/19 02:02 Last Admin: 09/02/19 02:11 Dose: 100 mls/hr Documented by: Sodium Chloride (Normal Saline) 1,000 mls @ 125 mls/hr IV ASDIRECTED [facility] Last Admin: 09/02/19 04:52 Dose: 125 mls/hr Documented by: Ceftriaxone Sodium/Dextrose 1 (gm/ Premix) 50 mls @ 100 mls/hr IV Q24H [facility] Last Admin: 09/02/19 04:54 Dose: 100 mls/hr Documented by: Acetaminophen 1,000 mg/ Premix 100 mls @ 400 mls/hr IV NOW ONE Stop: 09/02/19 12:44 Last Admin: 09/02/19 13:51 Dose: Not Given Documented by: Iopamidol (Isovue-370 (76%)) 100 ml IVPUSH ONETIME STA Stop: 09/02/19 02:03 Last Admin: 09/02/19 02:03 Dose: 100 ml Documented by: Midazolam HCl (Versed 1 Mg/Ml) Confirm Administered Dose 2 mg .ROUTE .STK-MED ONE Stop: 09/02/19 11:46 Morphine Sulfate (Morphine) 2 mg IVPUSH Q3H PRN PRN Reason: Pain Morphine Sulfate (Morphine) Confirm Administered Dose 10 mg .ROUTE .STK-MED ONE Stop: 09/02/19 12:29 Ondansetron HCl (Zofran) Confirm Administered Dose 4 mg .ROUTE .STK-MED ONE Stop: 09/02/19 11:45 Oxycodone/Acetaminophen (Percocet 325-5 Mg) 2 tab PO ONETIME ONE Stop: 09/02/19 02:19 Last Admin: 09/02/19 02:39 Dose: 2 tab Documented by: Propofol (Diprivan 20 Ml) Confirm Administered Dose 400 mg .ROUTE .STK-MED ONE Stop: 09/02/19 11:45 - Exam General: Alert, Oriented Neck: Supple Lungs: Clear to Auscultation, Normal Respiratory Effort Cardiovascular: Regular Rate, Regular Rhythm Extremities: Non-Tender, No Pedal Edema Skin: Warm, Dry, Intact Neurological: No New Focal Deficit Sepsis Event Note - Evaluation Sepsis Screening Result: No Definite Risk - Focused Exam Vital Signs: Vital Signs Temp Temp Pulse Resp BP Pulse Ox 09/03/19 08:09 36.3 C 81 20 133/64 95 09/03/19 05:19 38.2 C H 09/03/19 04:33 38.8 C H 09/03/19 03:48 38.8 C H 90 20 136/56 L 95 09/03/19 00:00 37.7 C 90 19 152/62 H 93 L Date Exam was Performed: 09/03/19 Time Exam was Performed: 11:04 - Problem List Review Problem List Initiated/Reviewed/Updated: Yes - My Orders Last 24 Hours: My Active Orders 09/02/19 16:00 Piperacillin/Tazobactam [Piperacil-Tazobact] 3.375 gm Sodium Chloride 0.9% [Normal Saline] 50 ml IV Q6H 09/03/19 04:10 Acetaminophen [Tylenol] 325 mg PO Q4H PRN 09/03/19 11:03 MAGNESIUM [CHEM] Routine Potassium Chloride [Klor-Con M20] 40 meq PO ONETIME ONE 09/03/19 11:15 Sodium Chloride 0.9% with KCl 40 mEq @ Enter Rate (1000 mL) Sodium Chloride 0.9% with KCl [Normal Saline with 40 mEq KCl] 1,000 ml IV ASDIRECTED - Plan Plan:: 39 yo female admitted for left pyelonephritis with obstructing renal stone. Dr. Bustillo place a left ureter stent yesterday. Antibiotics switch to Zosyn due to blood cultures growing gram negative rods. Awaiting results of cultures.
[2019-09-03] MEDS ORDERED: Sodium Chloride 0.9% with KCl 1,000 ML IV SCH (11:15)
--- NOTE | 2019-09-03 12:02 | CR ---
Abdomen: 6 fluoroscopic spot views of the abdomen were obtained. Study obtained utilizing C-arm device. Study shows placement of a left ureteral stent. Fluoroscopy time is given as 8.0 seconds. Impression: 1. Procedural study as noted above. Diagnostic code #1 This report was dictated in MDT
[2019-09-04] MEDS: Piperacillin/Tazobactam 3.375 GM in Sodium Chloride 0.9% 50 ML IV SCH ×2 (03:26→10:23)
[2019-09-04 06:36] LABS: BLOOD UREA NITROGEN,BUN 6 mg/dL (7.0-18.0); CARBON DIOXIDE,CO2 21.5 mmol/L (21.0-32.0); CHLORIDE,CL 101 mmol/L (98-107); GLUCOSE RANDOM 96 mg/dL (74-106); POTASSIUM,K 3.4 mmol/L (3.5-5.1); SODIUM,NA 135 mmol/L (136-145)
[2019-09-04] MEDS ORDERED: Potassium Chloride 20 MEQ Tab.ER PO ONE (10:07)
--- NOTE | 2019-09-04 10:52 | PCM.DCSUM1 ---
Discharge Summary - Discharge Data Discharge Date: 09/04/19 Discharge Disposition: Home, Self-Care 01 Condition: Good - Referral to Home Health Primary Care Physician: Nick Maher DO - Patient Summary/Data Consults: Consultations 09/02/19 09:12 Consult to Physician [CONS] Urgent Hospital Course: 39 yo female who was admitted for left pyelonephritis with obstructing left uretheral stone. She presented with two day history of left flank pain dysuria and fevers. CT scan in the ED showed 2mm obstructing stone of the left kidney with mild hydronephrosis and perinephric edema. She was treated with IV antibiotics. Dr. Bustillo place a left double J stent. She did have 1/ blood cultures and urine cultures grow out pansensitive E.coli. Today she is feeling better and is requesting discharge. Will discharge patient with 11 more days of Levaquin. She is to follow up with Dr. Bustillo. - Discharge Plan Prescriptions/Med Rec: levoFLOXacin [Levaquin] 750 mg PO DAILY #11 tab Home Medications: Home Meds Ibuprofen 800 mg PO ASDIRECTED PRN 09/01/19 [History] levoFLOXacin [Levaquin] 750 mg PO DAILY #11 tab 09/04/19 [Rx] Patient Handouts: Ureteral Stent Implantation, Care After Referrals: Laurie Bustillo MD [Physician] - 09/08/19 12:45 pm (Arrive 15 minutes early with a photo Id, insurance card, and a mask. The [facility] shared the parking lot with [employer]. ) Sarah Mijares NP [Nurse Practitioner] - 09/11/19 10:30 am - Discharge Summary/Plan Comment DC Time >30 min.: No - Patient Data Vitals - Most Recent: Last Vital Signs Temp 36.6 C 09/04/19 07:59 Pulse 81 09/04/19 07:59 Resp 12 09/04/19 07:59 BP 154/79 H 09/04/19 07:59 Pulse Ox 96 09/04/19 07:59 Weight - Most Recent: 97.386 kg I&O - Last 24 hours: Intake & Output 09/03/19 09/04/19 09/04/19 22:59 06:59 14:59 Intake Total 3650 750 Output Total 2700 2450 Balance 950 -1700 Lab Results - Last 24 hrs: Laboratory Results - last 24 hr 09/02/19 09/02/19 09/02/19 Range/Units 00:30 00:30 00:30 WBC 19.68 H (4.0-11.0) K/uL RBC 4.85 (4.30-5.90) M/uL Hgb 14.6 (12.0-16.0) g/dL Hct 42.9 (36.0-46.0) % MCV 88.5 (80.0-98.0) fL MCH 30.1 (27.0-32.0) pg MCHC 34.0 (31.0-37.0) g/dL RDW Std Deviation 40.9 (28.0-62.0) fl RDW Coeff of Javy 13 (11.0-15.0) % Plt Count 274 (150-400) K/uL MPV 9.00 (7.40-12.00) fL Neut % (Auto) 88.1 H (48.0-80.0) % Lymph % (Auto) 4.6 L (16.0-40.0) % [place] % (Auto) 7.0 (0.0-15.0) % Eos % (Auto) 0.1 (0.0-7.0) % Baso % (Auto) 0.2 (0.0-1.5) % Neut # (Auto) 17.4 H (1.4-5.7) K/uL Lymph # (Auto) 0.9 (0.6-2.4) K/uL [place] # (Auto) 1.4 H (0.0-0.8) K/uL Eos # (Auto) 0.0 (0.0-0.7) K/uL Baso # (Auto) 0.0 (0.0-0.1) K/uL Nucleated RBC % /100WBC Nucleated RBCs # K/uL INR 1.02 Sodium 135 L (136-145) mmol/L Potassium 3.7 (3.5-5.1) mmol/L Chloride 99 (98-107) mmol/L Carbon Dioxide 23.8 (21.0-32.0) mmol/L BUN 9 (7.0-18.0) mg/dL Creatinine 1.2 H (0.6-1.0) mg/dL Est Cr Clr Drug Dosing 50.27 mL/min Estimated GFR (MDRD) 50.3 ml/min Glucose 106 (74-106) mg/dL Calcium 8.4 L (8.5-10.1) mg/dL Magnesium (1.8-2.4) mg/dL Total Bilirubin 0.8 (0.2-1.0) mg/dL AST 23 (15-37) IU/L ALT 27 (14-63) IU/L Alkaline Phosphatase 95 (46-116) U/L Troponin I < 0.050 (0.000-0.056) ng/mL Total Protein 7.0 (6.4-8.2) g/dL Albumin 3.6 (3.4-5.0) g/dL Globulin 3.4 (2.6-4.0) g/dL Albumin/Globulin Ratio 1.1 (0.9-1.6) Lipase 33 L (73-393) U/L 09/03/19 09/04/19 09/04/19 Range/Units 06:00 05:45 05:45 WBC 6.00 (4.0-11.0) K/uL RBC 3.67 L (4.30-5.90) M/uL Hgb 10.9 L (12.0-16.0) g/dL Hct 32.8 L (36.0-46.0) % MCV 89.4 (80.0-98.0) fL MCH 29.7 (27.0-32.0) pg MCHC 33.2 (31.0-37.0) g/dL RDW Std Deviation 44.1 (28.0-62.0) fl RDW Coeff of Javy 13 (11.0-15.0) % Plt Count 247 (150-400) K/uL MPV 9.20 (7.40-12.00) fL Neut % (Auto) 73.8 (48.0-80.0) % Lymph % (Auto) 15.2 L (16.0-40.0) % [place] % (Auto) 9.0 (0.0-15.0) % Eos % (Auto) 1.8 (0.0-7.0) % Baso % (Auto) 0.2 (0.0-1.5) % Neut # (Auto) 4.4 (1.4-5.7) K/uL Lymph # (Auto) 0.9 (0.6-2.4) K/uL [place] # (Auto) 0.5 (0.0-0.8) K/uL Eos # (Auto) 0.1 (0.0-0.7) K/uL Baso # (Auto) 0.0 (0.0-0.1) K/uL Nucleated RBC % 0.0 /100WBC Nucleated RBCs # 0 K/uL INR Sodium 135 L (136-145) mmol/L Potassium 3.4 L (3.5-5.1) mmol/L Chloride 101 (98-107) mmol/L Carbon Dioxide 21.5 (21.0-32.0) mmol/L BUN 6 L (7.0-18.0) mg/dL Creatinine 0.9 (0.6-1.0) mg/dL Est Cr Clr Drug Dosing 66.45 mL/min Estimated GFR (MDRD) > 60.0 ml/min Glucose 96 (74-106) mg/dL Calcium 8.3 L (8.5-10.1) mg/dL Magnesium 1.6 L 1.8 (1.8-2.4) mg/dL Total Bilirubin (0.2-1.0) mg/dL AST (15-37) IU/L ALT (14-63) IU/L Alkaline Phosphatase (46-116) U/L Troponin I (0.000-0.056) ng/mL Total Protein (6.4-8.2) g/dL Albumin (3.4-5.0) g/dL Globulin (2.6-4.0) g/dL Albumin/Globulin Ratio (0.9-1.6) Lipase (73-393) U/L MARIA E Results - Last 24 hrs: Microbiology 09/02/19 00:58 Aerobic Blood Culture - Preliminary Blood - Venous - Lab Draw NO GROWTH AFTER 2 DAYS Anaerobic Blood Culture - Final Escherichia Coli 09/02/19 00:30 Aerobic Blood Culture - Preliminary Blood - Venous NO GROWTH AFTER 2 DAYS Anaerobic Blood Culture - Preliminary NO GROWTH AFTER 2 DAYS 09/01/19 23:45 Urine Culture - Final Urine, Voided Escherichia Coli Normal Urogenital Reena Med Orders - Current: Current Medications Acetaminophen (Tylenol) 325 mg PO Q4H PRN PRN Reason: Pain/Fever Last Admin: 09/03/19 04:33 Dose: 325 mg Documented by: Piperacillin Sod/Tazobactam (Sod 3.375 gm/ Sodium Chloride) 50 mls @ 100 mls/hr IV Q6H [facility] Last Admin: 09/04/19 10:23 Dose: 100 mls/hr Documented by: Morphine Sulfate (Morphine) 2 mg IVPUSH Q3H PRN PRN Reason: Pain Ondansetron HCl (Zofran) 4 mg IVPUSH Q4H PRN PRN Reason: Nausea/Vomiting Last Admin: 09/03/19 08:24 Dose: 4 mg Documented by: Oxycodone HCl (Oxycodone) 5 mg PO Q4H PRN PRN Reason: Pain Last Admin: 09/03/19 21:20 Dose: 5 mg Documented by: Sodium Chloride (Saline Flush) 10 ml FLUSH ASDIRECTED PRN PRN Reason: Keep Vein Open Sodium Chloride (Saline Flush) 2.5 ml FLUSH ASDIRECTED PRN PRN Reason: Keep Vein Open Discontinued Medications Fentanyl (Sublimaze) Confirm Administered Dose 200 mcg .ROUTE .STK-MED ONE Stop: 09/02/19 11:46 Glycopyrrolate (Robinul) Confirm Administered Dose 0.2 mg .ROUTE .STK-MED ONE Stop: 09/02/19 11:47 Sodium Chloride (Normal Saline) 1,000 mls @ 1,000 mls/hr IV .Bolus ONE Stop: 09/02/19 01:59 Last Admin: 09/02/19 01:07 Dose: 1,000 mls/hr Documented by: Ceftriaxone Sodium/Dextrose 1 (gm/ Premix) 50 mls @ 100 mls/hr IV ONETIME ONE Stop: 09/02/19 02:02 Last Admin: 09/02/19 02:11 Dose: 100 mls/hr Documented by: Sodium Chloride (Normal Saline) 1,000 mls @ 125 mls/hr IV ASDIRECTED [facility] Last Admin: 09/02/19 04:52 Dose: 125 mls/hr Documented by: Ceftriaxone Sodium/Dextrose 1 (gm/ Premix) 50 mls @ 100 mls/hr IV Q24H [facility] Last Admin: 09/02/19 04:54 Dose: 100 mls/hr Documented by: Acetaminophen 1,000 mg/ Premix 100 mls @ 400 mls/hr IV NOW ONE Stop: 09/02/19 12:44 Last Admin: 09/02/19 13:51 Dose: Not Given Documented by: Potassium Chloride/Sodium Chloride (Normal Saline With 40 Meq Kcl) 1,000 mls @ 150 mls/hr IV ASDIRECTED EYAL Stop: 09/03/19 17:54 Last Admin: 09/03/19 11:32 Dose: 150 mls/hr Documented by: Iopamidol (Isovue-370 (76%)) 100 ml IVPUSH ONETIME STA Stop: 09/02/19 02:03 Last Admin: 09/02/19 02:03 Dose: 100 ml Documented by: Midazolam HCl (Versed 1 Mg/Ml) Confirm Administered Dose 2 mg .ROUTE .STK-MED ONE Stop: 09/02/19 11:46 Morphine Sulfate (Morphine) 2 mg IVPUSH Q3H PRN PRN Reason: Pain Morphine Sulfate (Morphine) Confirm Administered Dose 10 mg .ROUTE .STK-MED ONE Stop: 09/02/19 12:29 Ondansetron HCl (Zofran) Confirm Administered Dose 4 mg .ROUTE .STK-MED ONE Stop: 09/02/19 11:45 Oxycodone/Acetaminophen (Percocet 325-5 Mg) 2 tab PO ONETIME ONE Stop: 09/02/19 02:19 Last Admin: 09/02/19 02:39 Dose: 2 tab Documented by: Potassium Chloride (Klor-Con M20) 40 meq PO ONETIME ONE Stop: 09/03/19 11:04 Last Admin: 09/03/19 11:31 Dose: 40 meq Documented by: Potassium Chloride (Klor-Con M20) 40 meq PO ONETIME ONE Stop: 09/04/19 10:08 Last Admin: 09/04/19 10:22 Dose: 40 meq Documented by: Propofol (Diprivan 20 Ml) Confirm Administered Dose 400 mg .ROUTE .STK-MED ONE Stop: 09/02/19 11:45
== END 2019-09-04 12:20 | disposition home or self-care (01) | DRG 661 ==
LOC: MW.ED 23:01 → MW.MS 09-02 02:51
PROVIDERS: ADMIT Internal Medicine; ATTEND Internal Medicine
PROC: 0T778DZ Dilation of Left Ureter with Intraluminal Device, Via Natural or Artificial Opening Endoscopic (ICD-10-PCS; principal; 2019-09-02)
DX: N13.6 Pyonephrosis (principal); B96.20 Unspecified Escherichia coli [E. coli] as the cause of diseases classified elsewhere; F17.200 Nicotine dependence, unspecified, uncomplicated; Z20.828 Contact with and (suspected) exposure to other viral communicable diseases
CPT/HCPCS: 00910; 36415; 74177; 74177-26; 76000; 76000-26; 80048; 80053; 81001; 81025; 83605; 83690; 83735; 84484; 85025; 85610; 87040; 87077; 87086; 87088; 87186; 96361; 96365; 99285; 99285-25; A9270-GY; C1769; C2617; J0696; J2250; J2270; J2405; J2543; J2704; J3010; J3480; J3490; J7030; J7050; Q9967; U0002

== ENCOUNTER 2019-09-16 11:01 | Day surgery (SDC) | payer OTHER ==
[~2019-09-16 11:01] MED LIST: Lactated Ringers 1,000 ML IV SCH; Lidocaine 2% 5 ML SDV ONE; Midazolam 1 MG/ML 2 ML SDV ONE; Ondansetron 4 MG/2 ML SDV ONE; Propofol 200 MG/20 ML SDV ONE; Sodium Chloride 0.9% 10 ML SDV IV PRN; Sodium Chloride 0.9% 10 ML Syringe FLUSH PRN; Sodium Chloride 0.9% 2.5 ML Syringe FLUSH PRN; ceFAZolin 2 GM in Premix Bag 1 BAG IV ONE; fentaNYL 250 MCG/5 ML SDV ONE
[2019-09-16] MEDS ORDERED: fentaNYL 100 MCG/2 ML SDV IVPUSH PRN (11:34)
[2019-09-16] MEDS ORDERED: EPINEPHrine 1:10,000 1 MG/10 ML Syringe IVPUSH PRN (11:34)
[2019-09-16] MEDS ORDERED: 50% Dextrose in Water 50 ML Syringe IVPUSH PRN (11:34)
[2019-09-16] MEDS ORDERED: Atropine 0.1 MG/ML 10 ML Syringe IVPUSH PRN ×2 (11:34)
[2019-09-16] MEDS ORDERED: Naloxone 0.4 MG/ML Syringe IVPUSH PRN (11:34)
[2019-09-16] MEDS ORDERED: Albuterol 0.083% 2.5 MG/3 ML Neb Soln NEB PRN (11:34)
--- NOTE | 2019-09-16 11:44 | PCM.PREANE ---
Preanesthetic Assessment - Anesthesia/Transfusion/Family Hx Anesthesia History: Prior Anesthesia Without Reaction Family History of Anesthesia Reaction: No Transfusion History: No Prior Transfusion(s) Intubation History: Unknown - Review of Systems General: No Symptoms Pulmonary: No Symptoms Cardiovascular: No Symptoms Gastrointestinal: No Symptoms Neurological: No Symptoms Other: Reports: None - Physical Assessment Vital Signs: Last Vital Signs Temp 36 C L 09/16/19 11:19 Pulse 72 09/16/19 11:19 Resp 14 09/16/19 11:19 BP 139/62 09/16/19 11:19 Pulse Ox 96 09/16/19 11:19 Height: 5 ft 2 in Weight: 91.172 kg ASA Class: 2 Mental Status: Alert & Oriented x3 Airway Class: Mallampati = 2 Dentition: Reports: Normal Dentition Thyro-Mental Finger Breadths: 3 Mouth Opening Finger Breadths: 3 ROM/Head Extension: Full Lungs: Clear to Auscultation, Normal Respiratory Effort Cardiovascular: Regular Rate, Regular Rhythm - Allergies Allergies/Adverse Reactions: Allergies Allergy/AdvReac Type Severity Reaction Status Date / Time No Known Allergies Allergy Verified 09/11/19 14:34 - Blood Blood Available: No - Anesthesia Plan Pre-Op Medication Ordered: None - Acknowledgements Anesthesia Type Planned: General Anesthesia Pt an Appropriate Candidate for the Planned Anesthesia: Yes Alternatives and Risks of Anesthesia Discussed w Pt/Guardian: Yes Pt/Guardian Understands and Agrees with Anesthesia Plan: Yes PreAnesthesia Questionnaire HEENT History: Other HEENT History: wears glasses Gastrointestinal History: Reports: Other (See Below) Other Gastrointestinal History: occasional heartburn- takes Tums, thinks she has IBS but it has not been diagnosed Genitourinary History: Reports: Renal Calculus Psychiatric History: Reports: Anxiety Endocrine/Metabolic History: Reports: Obesity/BMI 30+ (BMI 36.8) Dermatologic History: Reports: Other (See Below) Other Dermatologic History: hx of Hydredentitis- no current abscess - Infectious Disease History Infectious Disease History: Reports: Chicken Pox - Past Surgical History Head Surgeries/Procedures: Reports: None GI Surgical History: Reports: Cholecystectomy Female Surgical History: Reports: Endometrial Ablation, Tubal Ligation, Other (See Below) Other Female Surgeries/Procedures: hysteroscopy with excision of Uterine polyp, ureteral stent put in last weak- pt. was septic - SUBSTANCE USE Smoking Status *Q: Current Every Day Smoker Tobacco Use Within Last Twelve Months: Cigarettes Recreational Drug Use History: Yes Recreational Drug Type: Reports: Marijuana/Hashish - HOME MEDS Home Medications: Home Meds . [No Known Home Meds] 09/11/19 [History] - CURRENT (IN HOUSE) MEDS Current Meds: Current Medications Albuterol (Proventil Neb Soln) 2.5 mg NEB ONETIME PRN PRN Reason: Wheezing Atropine Sulfate (Atropine 0.1 Mg/Ml) 0.5 mg IVPUSH ASDIRECTED PRN PRN Reason: Hypo-perfusion Atropine Sulfate (Atropine 0.1 Mg/Ml) 1 mg IVPUSH ASDIRECTED PRN PRN Reason: Hypo-Perfusion Dextrose/Water (Dextrose 50% In Water) 50 ml IVPUSH ASDIRECTED PRN PRN Reason: Hypoglycemia Epinephrine HCl (Epinephrine 1:10,000) 1 mg IVPUSH ASDIRECTED PRN PRN Reason: ACLS Guidelines Fentanyl (Sublimaze) 50 - 100 mcg IVPUSH Q5M PRN PRN Reason: Pain Lactated Ringer's (Ringers, Lactated) 1,000 mls @ 100 mls/hr IV ASDIRECTED EYAL Naloxone HCl (Narcan) 0.1 mg IVPUSH ASDIRECTED PRN PRN Reason: Respiratory Depression Sodium Chloride (Saline Flush) 10 ml FLUSH ASDIRECTED PRN PRN Reason: Keep Vein Open Sodium Chloride (Saline Flush) 2.5 ml FLUSH ASDIRECTED PRN PRN Reason: Keep Vein Open Sodium Chloride (Normal Saline) 10 ml IV ASDIRECTED PRN PRN Reason: IV Use Discontinued Medications Fentanyl (Sublimaze) Confirm Administered Dose 250 mcg .ROUTE .STK-MED ONE Stop: 09/16/19 10:59 Cefazolin Sodium/Dextrose 2 gm (/ Premix) 50 mls @ 100 mls/hr IV ONCALL ONE Stop: 09/16/19 00:30 Lidocaine (Xylocaine-Mpf 2%) Confirm Administered Dose 5 ml .ROUTE .STK-MED ONE Stop: 09/16/19 10:59 Midazolam HCl (Versed 1 Mg/Ml) Confirm Administered Dose 2 mg .ROUTE .STK-MED ONE Stop: 09/16/19 10:59 Ondansetron HCl (Zofran) Confirm Administered Dose 4 mg .ROUTE .STK-MED ONE Stop: 09/16/19 10:59 Propofol (Diprivan 20 Ml) Confirm Administered Dose 200 mg .ROUTE .STK-MED ONE Stop: 09/16/19 10:59
[2019-09-16] MEDS ORDERED: Iopamidol 200-M 10 ML vial ITHECAL ONE (11:57)
[2019-09-16] MEDS ORDERED: Ketorolac 30 MG/ML SDV IVPUSH ONE (12:41)
[2019-09-16] MEDS ORDERED: Morphine 4 MG/ML Syringe IVPUSH ONE (12:41)
--- NOTE | 2019-09-16 13:04 | PCM.POSTAN ---
POST ANESTHESIA ASSESSMENT - MENTAL STATUS Mental Status: Alert, Oriented - VITAL SIGNS Vital Signs: Last Vital Signs Temp 97.2 F 09/16/19 12:47 Pulse 72 09/16/19 12:58 Resp 15 09/16/19 12:58 BP 129/50 L 09/16/19 12:58 Pulse Ox 98 09/16/19 12:58 - RESPIRATORY Respiratory Status: Respiratory Rate WNL, Airway Patent, O2 Saturation Stable - CARDIOVASCULAR CV Status: Pulse Rate WNL, Blood Pressure Stable - GASTROINTESTINAL GI Status: No Symptoms - PAIN Pain Score: 0 - POST OP HYDRATION Hydration Status: Adequate & Stable
--- NOTE | 2019-09-16 13:36 | PCM48HPAN ---
Post Anesthesia Note - EVALUATION WITHIN 48HRS OF ANESTHETIC Vital Signs in Normal Range: Yes Patient Participated in Evaluation: Yes Respiratory Function Stable: Yes Airway Patent: Yes Cardiovascular Function Stable: Yes Hydration Status Stable: Yes Pain Control Satisfactory: Yes Nausea and Vomiting Control Satisfactory: Yes Mental Status Recovered: Yes Vital Signs: Last Vital Signs Temp 36.2 C 09/16/19 12:47 Pulse 72 09/16/19 12:58 Resp 15 09/16/19 12:58 BP 129/50 L 09/16/19 12:58 Pulse Ox 98 09/16/19 12:58 - COMMENTS/OBSERVATIONS Free Text/Narrative:: Doing well. Ready for discharge. No problems noted at present.
--- NOTE | 2019-09-16 15:08 | OR ---
SURGEON: Laurie Bustillo M.D. DATE OF PROCEDURE: 09/16/2019 PREOPERATIVE DIAGNOSIS: Left lower ureteral stone with obstruction and urinary sepsis status post double- J stent placement. POSTOPERATIVE DIAGNOSIS: Left lower ureteral stone with obstruction and urinary sepsis status post double- J stent placement. OPERATION: Cystoscopy, double-J stent removal plus ureteroscopy and stone removal. DESCRIPTION OF PROCEDURE: The patient was given general anesthesia. She was placed in the dorsal lithotomy position, prepped and draped in sterile drapes. The 26-Faroese cystoscope was introduced in the bladder without difficulty. The double-J stent was grasped and removed. The rigid ureteroscope was then advanced in the left ureter without difficulty. The stone was encountered in the lower ureter and was grasped and removed. With that done, the ureteroscope was then advanced in the middle and upper ureter without resistance or difficulty looking for any additional stones, none were found. With that done, the procedure was terminated. The bladder was emptied and the patient was moved to recovery room in good condition. DARELL / RANDI /[id number]
== END 2019-09-16 14:23 | disposition home or self-care (01) ==
LOC: MW.SDS 11:01
PROVIDERS: ATTEND Urology
DX: N20.1 Calculus of ureter (principal); A41.89 Other specified sepsis; F41.9 Anxiety disorder, unspecified; E66.9 Obesity, unspecified; F17.210 Nicotine dependence, cigarettes, uncomplicated; Z79.899 Other long term (current) drug therapy; Z68.36 Body mass index [BMI] 36.0-36.9, adult; Z90.49 Acquired absence of other specified parts of digestive tract; Z79.51 Long term (current) use of inhaled steroids
CPT/HCPCS: 00918; 81025; 88300; C1769; J0131; J2001; J2250; J2405; J2704; J3010; J7120; Q9966

== ENCOUNTER 2021-12-16 08:26 | Day surgery (SDC) | payer BC ==
[~2021-12-16 08:26] MED LIST changes: -Lidocaine 2% 5 ML SDV ONE; -Ondansetron 4 MG/2 ML SDV ONE; -Sodium Chloride 0.9% 10 ML SDV IV PRN; -Sodium Chloride 0.9% 10 ML Syringe FLUSH PRN; -Sodium Chloride 0.9% 2.5 ML Syringe FLUSH PRN; -ceFAZolin 2 GM in Premix Bag 1 BAG IV ONE; +fentaNYL 100 MCG/2 ML SDV ONE; -fentaNYL 250 MCG/5 ML SDV ONE
[2021-12-16] MEDS ORDERED: Ketamine 500 mg/10 ML MDV ONE (09:53)
[2021-12-16] MEDS ORDERED: Lactated Ringers 1,000 ML IV SCH (10:30)
== END 2021-12-16 11:15 | disposition home or self-care (01) ==
LOC: MW.SDS 08:26
PROVIDERS: ATTEND Surgery
DX: K20.90 Esophagitis, unspecified without bleeding (principal); K29.70 Gastritis, unspecified, without bleeding; F17.210 Nicotine dependence, cigarettes, uncomplicated; F41.9 Anxiety disorder, unspecified; E66.9 Obesity, unspecified; Z98.890 Other specified postprocedural states; Z90.49 Acquired absence of other specified parts of digestive tract; Z68.36 Body mass index [BMI] 36.0-36.9, adult
CPT/HCPCS: 00813; J2250; J2704; J3010; J3490; J7120

== ENCOUNTER 2023-01-01 11:59 | Day surgery (SDC) | payer BC ==
[~2023-01-01 11:59] MED LIST changes: -Midazolam 1 MG/ML 2 ML SDV ONE; -Propofol 200 MG/20 ML SDV ONE; -fentaNYL 100 MCG/2 ML SDV ONE
[2023-01-01] MEDS ORDERED: Propofol 200 MG/20 ML SDV ONE ×2 (12:01→12:51)
[2023-01-01] MEDS ORDERED: Lactated Ringers 1,000 ML IV SCH (13:15)
== END 2023-01-01 13:48 | disposition home or self-care (01) ==
LOC: MW.SDS 11:59
PROVIDERS: ATTEND Surgery
DX: K29.50 Unspecified chronic gastritis without bleeding (principal); K21.00 Gastro-esophageal reflux disease with esophagitis, without bleeding; K22.70 Barrett's esophagus without dysplasia; K22.89 Other specified disease of esophagus; K31.89 Other diseases of stomach and duodenum; F41.9 Anxiety disorder, unspecified; F32.A Depression, unspecified; K58.9 Irritable bowel syndrome, unspecified; F17.210 Nicotine dependence, cigarettes, uncomplicated; F10.11 Alcohol abuse, in remission; E66.9 Obesity, unspecified; Z87.442 Personal history of urinary calculi; Z79.899 Other long term (current) drug therapy; Z98.890 Other specified postprocedural states
CPT/HCPCS: 43239; J2704; J7120; 00731

== ENCOUNTER 2023-03-20 13:11 | Emergency (ER) | payer BC ==
[2023-03-20] MEDS ORDERED: Sodium Chloride 0.9% 1,000 ML IV ONE (14:05)
[2023-03-20] MEDS ORDERED: Ondansetron 4 MG/2 ML SDV IVPUSH ONE (14:05)
[2023-03-20 14:23] LABS: BASOPHILS ABSOLUTE AUTO 0.04 K/uL (0.00-0.20); BASOPHILS PERCENT AUTO 0.5 % (0.0-1.0); EOSINOPHILS PERCENT AUTO 1.3 % (0.0-6.0); HEMATOCRIT 47.8 % (37.0-47.0); HEMOGLOBIN 16.6 g/dL (12.0-16.0); IMMATURE GRAN ABSOLUTE AUTO 0.02 K/uL (0.00-0.05); IMMATURE GRAN PERCENT AUTO 0.3 % (0.0-0.4); LYMPHOCYTES ABSOLUTE AUTO 2.04 K/uL (1.00-4.80); LYMPHOCYTES PERCENT AUTO 25.6 % (24.0-44.0); MEAN CORPUSCULAR HEMOGLOBIN 30.5 pg (28.0-32.0); MEAN CORPUSCULAR HGB CONC 34.7 g/dL (32.0-36.0); MEAN CORPUSCULAR VOLUME 87.9 fL (83.0-99.0); MEAN PLATELET VOLUME 8.7 fL (9.4-12.3); MONOCYTES PERCENT AUTO 6.3 % (0.0-8.0); NEUTROPHILS ABSOLUTE AUTO 5.28 K/uL (1.80-7.70); PLATELET COUNT,PLT 292 K/uL (150-400); RED BLOOD CELL COUNT 5.44 M/uL (4.10-5.30); WHITE BLOOD CELL COUNT,WBC 7.98 K/uL (3.9-11.3)
[2023-03-20 14:43] LABS: A/G RATIO 1.2 (0.9-1.6); ALBUMIN 4.1 g/dL (3.4-5.0); BILIRUBIN TOTAL 0.5 mg/dL (0.2-1.0); CALCIUM 8.7 mg/dL (8.5-10.1); CARBON DIOXIDE,CO2 22.5 mmol/L (21.0-32.0); CREATININE 0.8 mg/dL (0.6-1.0); EST CRCL DRUG DOSING (CG) 79.91 mL/min; POTASSIUM,K 4.1 mmol/L (3.5-5.1); PROTEIN TOTAL,TP 7.4 g/dL (6.4-8.2)
[2023-03-20 16:45] LABS: BILIRUBIN,URINE NEGATIVE (NEGATIVE); COLOR,URINE YELLOW; GLUCOSE,URINE NEGATIVE (NEGATIVE); KETONES,URINE 15 mg/dL (NEGATIVE); LEUKOCYTE ESTERASE,URINE SMALL (NEGATIVE); NITRITE,URINE NEGATIVE (NEGATIVE); OCCULT BLOOD,URINE SMALL (NEGATIVE); PROTEIN,URINE NEGATIVE (NEGATIVE); UROBILINOGEN,URINE 0.2 EU/dL (<2.0)
[2023-03-20 16:53] LABS: APPEARANCE,URINE HAZY
[2023-03-20 16:54] LABS: BACTERIA,URINE 1+ (NEGATIVE); EPITHELIAL CELLS,URINE FEW (NONE-FEW); RBC,URINE 0-5 (0-2/HPF); WBC,URINE 0-5 (0-5/HPF)
== END 2023-03-20 17:15 | disposition home or self-care (01) ==
LOC: MW.ED 13:11
DX: K52.9 Noninfective gastroenteritis and colitis, unspecified (principal); N39.0 Urinary tract infection, site not specified; E66.9 Obesity, unspecified; K21.9 Gastro-esophageal reflux disease without esophagitis; Z79.899 Other long term (current) drug therapy
CPT/HCPCS: 36415; 80053; 81001; 83690; 85025; 87086; 96361; 96374; 99284; J2405; J7030